=== PATIENT | female | born 1950 | race Caucasian/White ===

== ENCOUNTER 2023-11-11 17:27 | Inpatient (IN) | payer MEDICARE ==
[2023-11-11 18:25] LABS: APPEARANCE,URINE CLOUDY (CLEAR); BILIRUBIN,URINE NEGATIVE (NEGATIVE); COLOR,URINE YELLOW (YELLOW); GLUCOSE,URINE NEGATIVE (NEGATIVE); KETONES,URINE NEGATIVE (NEGATIVE); LEUKOCYTE ESTERASE,URINE NEGATIVE (NEGATIVE); NITRITE,URINE NEGATIVE (NEGATIVE); OCCULT BLOOD,URINE TRACE-INTACT (NEGATIVE); PH,URINE 8.5 (5.0-8.0); PROTEIN,URINE 30 mg/dL (NEGATIVE); UROBILINOGEN,URINE 0.2 EU/dL (0.2-1.0)
[2023-11-11 18:30] LABS: BASOPHILS ABSOLUTE AUTO 0.03 K/uL (0.00-0.10); BASOPHILS PERCENT AUTO 0.4 % (0.1-1.3); EOSINOPHILS ABSOLUTE AUTO 0.09 K/uL (0.00-0.40); EOSINOPHILS PERCENT AUTO 1.2 % (0.0-5.4); HEMATOCRIT 39.4 % (34.3-46.0); HEMOGLOBIN 12.9 g/dL (11.2-15.5); IMMATURE GRAN ABSOLUTE AUTO 0.04 K/uL (0.00-0.23); IMMATURE GRAN PERCENT AUTO 0.5 % (0.0-0.7); LYMPHOCYTES ABSOLUTE AUTO 1.69 K/uL (0.8-3.3); LYMPHOCYTES PERCENT AUTO 21.6 % (11.4-47.7); MEAN CORPUSCULAR HEMOGLOBIN 30.6 pg (31.6-35.5); MEAN CORPUSCULAR HGB CONC 32.7 g/dL (31.6-35.5); MEAN CORPUSCULAR VOLUME 93.4 fL (81.4-99.0); MONOCYTES ABSOLUTE AUTO 0.77 K/uL (0.20-0.90); MONOCYTES PERCENT AUTO 9.9 % (3.3-12.6); NEUTROPHILS ABSOLUTE AUTO 5.19 K/uL (1.0-7.6); NEUTROPHILS PERCENT AUTO 66.4 % (40.0-78.1); PLATELET COUNT,PLT 260 K/uL (130-375); RED BLOOD CELL COUNT 4.22 M/uL (3.77-5.24); WHITE BLOOD CELL COUNT,WBC 7.8 K/uL (3.2-11.0)
[2023-11-11 18:31] LABS: AMORPHOUS SEDIMENT,URINE PACKED; BACTERIA,URINE MODERATE; EPITHELIAL CELLS,URINE FEW
[2023-11-11 18:32] LABS: MUCUS,URINE FEW
[2023-11-11 18:51] LABS: ALANINE AMINOTRANSFERASE,ALT 50 U/L (12-78); ALBUMIN 3.9 g/dL (3.4-5.0); ALKALINE PHOSPHATASE 98 U/L (46-116); ANION GAP 13.4 mmol/L (5.0-14.0); ASPARTATE AMNIOTRANSFERASE,AST 30 U/L (15-37); BILIRUBIN TOTAL 0.2 mg/dL (0.2-1.0); BLOOD UREA NITROGEN,BUN 24 mg/dL (7-18); C-REACTIVE PROTEIN < 0.50 mg/dL (<0.50); CALCIUM 8.8 mg/dL (8.5-10.1); CARBON DIOXIDE,CO2 28 mmol/L (21-32); CHLORIDE,CL 102 mmol/L (100-108); CREATININE 0.6 mg/dL (0.6-1.0); ESTIMATED GFR 96 mL/min (>60); GLUCOSE RANDOM 119 mg/dL (74-106); POTASSIUM,K 3.4 mmol/L (3.6-5.2); PROTEIN TOTAL,TP 7.8 g/dL (6.4-8.2); SODIUM,NA 140 mmol/L (140-148)
[2023-11-11] MEDS: Iopamidol 612 MG/ML 100 ML Bottle IV SCH (19:12)
[2023-11-11] MEDS: Sodium Chloride 0.9% 80 ML IV SCH (19:12)
[2023-11-11] MEDS: Sodium Chloride 0.9% 10 ML Syringe FLUSH ONE (19:12)
[2023-11-11] MEDS: Lidocaine 4% Top Soln 50 ML Bottle MUCMEM ONE (20:35)
[2023-11-11 21:42] LABS: CORONAVIRUS COVID-19 NAA NEGATIVE (NEGATIVE); INFLUENZA A NAA NEGATIVE (NEGATIVE); INFLUENZA B NAA NEGATIVE (NEGATIVE); RESPIRATORY SYNCYTIAL VIR NAA NEGATIVE (NEGATIVE)
[2023-11-11] MEDS ORDERED: Ondansetron 4 MG Tab.DIS PO PRN (22:19)
[2023-11-11] MEDS ORDERED: Ondansetron 4 MG/2 ML SDV IV PRN (22:19)
[2023-11-11] MEDS: Sodium Chloride 0.9% 1,000 ML IV SCH (22:52)
[2023-11-11] MEDS: Enoxaparin 40 MG/0.4 ML Syringe SUBCUT SCH (22:53)
[2023-11-11] MEDS: Donepezil 10 MG Tab PO SCH (22:54)
[2023-11-11] MEDS: Melatonin 3 MG Tab PO PRN (22:54)
[2023-11-11] MEDS: Pantoprazole 40 MG Vial IVPUSH ONE (22:54)
[2023-11-11] MEDS: Potassium Chloride 10 MEQ in Premix Bag 1 BAG IV SCH (23:14)
[2023-11-12 05:00] LABS: HEMATOCRIT 38.9 % (34.3-46.0); HEMOGLOBIN 12.7 g/dL (11.2-15.5); MEAN CORPUSCULAR HEMOGLOBIN 30.4 pg (31.6-35.5); MEAN CORPUSCULAR HGB CONC 32.6 g/dL (31.6-35.5); MEAN CORPUSCULAR VOLUME 93.1 fL (81.4-99.0); RED BLOOD CELL COUNT 4.18 M/uL (3.77-5.24); WHITE BLOOD CELL COUNT,WBC 7.4 K/uL (3.2-11.0)
[2023-11-12 05:26] LABS: ANION GAP 8.3 mmol/L (5.0-14.0); CREATININE 0.5 mg/dL (0.6-1.0); EST CRCL DRUG DOSING (CG) 67.94 mL/min; POTASSIUM,K 4.6 mmol/L (3.6-5.2)
[2023-11-12] MEDS: Acetaminophen 325 MG Tab PO PRN (05:54)
[2023-11-12] MEDS: Benzocaine/Cetylpyridinium/Menthol Lozenge MUCMEM PRN (06:12)
[2023-11-12] MEDS: Nicotine 14 MG/24 Hr Patch TRDERM SCH (09:41)
[2023-11-12] MEDS: Dextrose 5%-Lactated Ringers 1,000 ML IV SCH (13:04)
[2023-11-12] MEDS: Haloperidol Lactate 5 MG/ML SDV IVPUSH PRN (18:09)
[2023-11-12] MEDS: Donepezil 10 MG Tab PO SCH (20:15)
[2023-11-12] MEDS: atorvaSTATin 20 MG Tab PO SCH (20:15)
[2023-11-12] MEDS: Enoxaparin 40 MG/0.4 ML Syringe SUBCUT SCH (20:30)
[2023-11-12] MEDS: Pantoprazole 40 MG Vial IVPUSH SCH (20:35)
[2023-11-13 06:20] LABS: HEMATOCRIT 34.7 % (34.3-46.0); HEMOGLOBIN 11.2 g/dL (11.2-15.5); MEAN CORPUSCULAR HEMOGLOBIN 29.9 pg (31.6-35.5); MEAN CORPUSCULAR HGB CONC 32.3 g/dL (31.6-35.5); MEAN CORPUSCULAR VOLUME 92.5 fL (81.4-99.0); RED BLOOD CELL COUNT 3.75 M/uL (3.77-5.24); WHITE BLOOD CELL COUNT,WBC 4.7 K/uL (3.2-11.0)
[2023-11-13 06:31] LABS: ANION GAP 11.2 mmol/L (5.0-14.0); CALCIUM 8.8 mg/dL (8.5-10.1); CREATININE 0.6 mg/dL (0.6-1.0); EST CRCL DRUG DOSING (CG) 56.61 mL/min; MAGNESIUM 1.9 mg/dL (1.8-2.4); PHOSPHORUS 4.4 mg/dL (2.5-4.9); POTASSIUM,K 3.8 mmol/L (3.6-5.2)
[2023-11-13] MEDS ORDERED: Haloperidol 1 MG Tab PO PRN (16:25)
[2023-11-13] MEDS: Pantoprazole 40 MG Tab.CR PO SCH (17:18)
[2023-11-13] MEDS: Potassium Chloride 20 MEQ Tab.ER PO ONE (17:18)
[2023-11-14 06:46] LABS: ANION GAP 13.9 mmol/L (5.0-14.0); CREATININE 0.6 mg/dL (0.6-1.0); EST CRCL DRUG DOSING (CG) 56.61 mL/min; MAGNESIUM 1.9 mg/dL (1.8-2.4); PHOSPHORUS 4.7 mg/dL (2.5-4.9); POTASSIUM,K 3.9 mmol/L (3.6-5.2)
[2023-11-14 07:00] LABS: HEMATOCRIT 36.7 % (34.3-46.0); HEMOGLOBIN 12.1 g/dL (11.2-15.5); MEAN CORPUSCULAR HEMOGLOBIN 30.2 pg (31.6-35.5); MEAN CORPUSCULAR VOLUME 91.5 fL (81.4-99.0); RED BLOOD CELL COUNT 4.01 M/uL (3.77-5.24); WHITE BLOOD CELL COUNT,WBC 3.6 K/uL (3.2-11.0)
== END 2023-11-14 12:30 | disposition home or self-care (01) | DRG 390 ==
LOC: JP.ED 17:27 → JP.MS 20:56
PROVIDERS: ADMIT Registered Nurse; ATTEND Hospitalist
PROC: 0DH67UZ Insertion of Feeding Device into Stomach, Via Natural or Artificial Opening (ICD-10-PCS; principal; 2023-11-11)
DX: K56.609 Unspecified intestinal obstruction, unspecified as to partial versus complete obstruction (principal); E78.00 Pure hypercholesterolemia, unspecified; K56.600 Partial intestinal obstruction, unspecified as to cause; F02.B0 Dementia in other diseases classified elsewhere, moderate, without behavioral disturbance, psychotic disturbance, mood disturbance, and anxiety; E78.5 Hyperlipidemia, unspecified; E87.6 Hypokalemia; Z90.710 Acquired absence of both cervix and uterus; Z79.899 Other long term (current) drug therapy; Z87.891 Personal history of nicotine dependence
CPT/HCPCS: 0241U; 36415; 43752; 71045; 74019; 74021; 74177; 80048; 80053; 81001; 83735; 84100; 85025; 85027; 86140; 99223; 99233; 99238; 99285; A9270-GY; C9113; J1630; J1650; J3480; J3490; J7030; J7121; Q9967

== ENCOUNTER 2023-12-16 20:25 | Emergency (ER) | payer MEDICARE | END 2023-12-16 21:32 | disposition home or self-care (01) | LOC: JP.ED 20:25 | DX: K59.00 Constipation, unspecified (principal); F02.80 Dementia in other diseases classified elsewhere, unspecified severity, without behavioral disturbance, psychotic disturbance, mood disturbance, and anxiety; G30.9 Alzheimer's disease, unspecified; E78.00 Pure hypercholesterolemia, unspecified; Z87.891 Personal history of nicotine dependence; Z90.710 Acquired absence of both cervix and uterus; Z79.899 Other long term (current) drug therapy | CPT/HCPCS: 99283 ==

== ENCOUNTER 2025-03-20 16:52 | Emergency (ER) | payer MEDICARE | END 2025-03-20 17:27 | disposition home or self-care (01) | LOC: JP.ED 16:52 | DX: R46.89 Other symptoms and signs involving appearance and behavior (principal); Z79.899 Other long term (current) drug therapy; Z90.710 Acquired absence of both cervix and uterus; W18.39XA Other fall on same level, initial encounter; Y93.89 Activity, other specified | CPT/HCPCS: 99285 ==

== ENCOUNTER 2025-04-20 05:15 | Emergency (ER) | payer MEDICARE | END 2025-04-20 07:48 | disposition home or self-care (01) | LOC: JP.ED 05:15 | DX: S01.81XA Laceration without foreign body of other part of head, initial encounter (principal); Z79.899 Other long term (current) drug therapy; Z90.710 Acquired absence of both cervix and uterus; W19.XXXA Unspecified fall, initial encounter | CPT/HCPCS: 12011; 99283 ==